=== PATIENT | female | born 2000 | race Caucasian/White ===

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

== ENCOUNTER → 2018-10-08 19:37 | Emergency (ER) | payer OTHER ==
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
[2018-10-08 21:24] VITALS: BP 111/68
== END | disposition home or self-care (01) ==
LOC: ED 19:37
DX: S16.1XXA Strain of muscle, fascia and tendon at neck level, initial encounter (principal); V43.62XA Car passenger injured in collision with other type car in traffic accident, initial encounter; Y92.410 Unspecified street and highway as the place of occurrence of the external cause
CPT/HCPCS: 99282

== ENCOUNTER 2019-06-08 12:55 | Emergency (ER) | payer OTHER ==
[2019-06-08 12:59] VITALS: BP 128/81
== END 2019-06-08 13:11 | disposition left against medical advice (07) ==
LOC: ED 12:55
DX: Z53.21 Procedure and treatment not carried out due to patient leaving prior to being seen by health care provider (principal)
CPT/HCPCS: 99281

== ENCOUNTER 2019-06-08 13:33 | Emergency (ER) | payer OTHER ==
[2019-06-08 13:49] VITALS: BP 117/71
--- NOTE | 2019-06-08 14:12 | UC ---
FLU HPI - HPI Summary HPI Summary: reports having cold symps for 1 week. has been treating with DayQuil/NyQuil, this am awoke feeling achy and thinks she has the flu - History of Current Complaint Chief Complaint: UCGeneralIllness Stated Complaint: FLU LIKE SYMPTOMS Time Seen by Provider: 06/08/19 14:03 Hx Obtained From: Patient Hx Last Menstrual Period: pill ?: No Onset/Duration: Gradual Onset Severity Currently: Mild Severity Initially: Moderate Pain Intensity: 5 Associated Signs & Symptoms: Positive: Nasal Congestion. Negative: Fever, Cough , Sore Throat, Headache - Allergy/Home Medications Allergies/Adverse Reactions: Allergies Allergy/AdvReac Type Severity Reaction Status Date / Time No Known Allergies Allergy Verified 06/08/19 13:49 PMH/Surg Hx/FS Hx/Imm Hx Previously Healthy: Yes - Surgical History Surgical History: None Surgery Procedure, Year, and Place: none - Family History Known Family History: Negative: Diabetes - Social History Occupation: Student Lives: Dormitory/Roommates Alcohol Use: Occasionally Substance Use Type: None Smoking Status (MU): Never Smoked Tobacco Review of Systems All Other Systems Reviewed And Are Negative: Yes Constitutional: Positive: Fatigue. Negative: Fever, Chills Skin: Positive: Negative. Negative: Rash ENT: Positive: Sinus Congestion. Negative: Sore Throat, Ear Ache, Sinus Pain/ Tenderness Respiratory: Positive: Negative Cardiovascular: Positive: Negative Gastrointestinal: Positive: Negative. Negative: Vomiting, Diarrhea, Nausea Neurological: Positive: Negative. Negative: Headache Psychological: Positive: Negative Is Patient Immunocompromised?: No Physical Exam Triage Information Reviewed: Yes Appearance: Well-Appearing, No Pain Distress, Well-Nourished Vital Signs: Initial Vital Signs Temp 98.8 F 06/08/19 13:46 Pulse 67 06/08/19 13:46 Resp 16 06/08/19 13:46 BP 117/71 06/08/19 13:46 Pulse Ox 100 06/08/19 13:46 Vital Signs Reviewed: Yes Eyes: Positive: Conjunctiva Clear ENT: Positive: Pharynx normal, Nasal congestion, TMs normal. Negative: Sinus tenderness Neck exam: Normal Neck: Positive: No Lymphadenopathy Respiratory Exam: Normal Respiratory: Positive: Lungs clear Cardiovascular Exam: Normal Cardiovascular: Positive: RRR Psychological Exam: Normal Skin Exam: Normal Skin: Negative: Rashes Flu Course/Dx - Differential Dx/Diagnosis Differential Diagnosis/HQI/PQRI: Influenza, Upper Respiratory Infection Provider Diagnosis: Upper respiratory infection Discharge ED - Sign-Out/Discharge Documenting (check all that apply): Patient Departure All imaging exams completed and their final reports reviewed: No Studies - Discharge Plan Condition: Good Disposition: HOME Patient Education Materials: Upper Respiratory Infection (ED) Referrals: [facility] - Jag ALVAREZ [Primary Care Provider] - 2 Days (If no better) Additional Instructions: drink plenty of fluids and rest use DayQuil/Nyquil as directed for symptom relief - Billing Disposition and Condition Condition: GOOD Disposition: Home
[2019-06-08 14:29] LABS: Influenza A Molecular NEGATIVE (Negative); Influenza B Molecular NEGATIVE (Negative)
== END 2019-06-08 14:50 | disposition home or self-care (01) ==
LOC: UCEAST 13:33
DX: J06.9 Acute upper respiratory infection, unspecified (principal); R53.83 Other fatigue
CPT/HCPCS: 99211; G0463